=== PATIENT | female | born 1970 | race Caucasian/White ===

== ENCOUNTER 2018-06-02 14:53 | Outpatient (CLI) | payer OTHER | END 2018-06-02 14:54 | disposition home or self-care (01) | LOC: BICMAMMO 14:53 | PROVIDERS: ATTEND Obstetrics & Gynecology | DX: Z12.31 Encounter for screening mammogram for malignant neoplasm of breast (principal); Z80.3 Family history of malignant neoplasm of breast | CPT/HCPCS: 77063; 77067 ==

== ENCOUNTER 2020-01-05 14:59 | Outpatient (CLI) | payer OTHER ==
--- NOTE | 2020-01-05 15:51 | MMO ---
Bilateral MAMMO Bilat Screen [facility]. CLINICAL HISTORY: Patient is 49 years old and is seen for screening. The patient has no personal history of cancer. The patient has a history of bilateral Implants in 2014. VIEWS: The views performed were: bilateral craniocaudal; bilateral mediolateral oblique; and bilateral Implant displaced with tomosynthesis. FILMS COMPARED: The present examination has been compared to prior imaging studies performed at [facility] on 01/13/2013 and 06/02/2018. This study has been interpreted with the assistance of computer-aided detection. MAMMOGRAM FINDINGS: There are scattered fibroglandular densities. Normal implants are present. There are no suspicious masses, suspicious calcifications, or new areas of architectural distortion. IMPRESSION: THERE IS NO MAMMOGRAPHIC EVIDENCE OF MALIGNANCY. A ROUTINE FOLLOW-UP MAMMOGRAM IN 1 YEAR IS RECOMMENDED. THE RESULTS OF THIS EXAM WERE SENT TO THE PATIENT. ACR BI-RADS Category 2 - Benign finding MAMMOGRAPHY NOTE: 1. A negative mammogram report should not delay a biopsy if a dominant of clinically suspicious mass is present. 2. Approximately 10% to 15% of breast cancers are not detected by mammography. 3. Adenosis and dense breasts may obscure an underlying neoplasm. Reported by: BLOSSOM HERNANDEZ MD Electonically Signed: [id number]
== END 2020-01-05 15:00 | disposition home or self-care (01) ==
LOC: BICMAMMO 14:59
PROVIDERS: ATTEND Obstetrics & Gynecology
DX: Z12.31 Encounter for screening mammogram for malignant neoplasm of breast (principal)
CPT/HCPCS: 77063; 77067

== ENCOUNTER 2020-08-31 09:08 | Day surgery (SDC) | payer OTHER ==
[2020-08-29 15:35] VITALS: BMI 23.8
[2020-08-31] MEDS ORDERED: cefOXitin Sodium/Dextrose 2 GM/50 ML BAG ONE (10:14)
[2020-08-31] MEDS ORDERED: Fentanyl 100 MCG/2 ML VIAL ONE ×2 (10:36→11:52)
[2020-08-31] MEDS ORDERED: Midazolam HCl 2 mg/2 ml Vial ONE (10:36)
[2020-08-31] MEDS ORDERED: Lidocaine 1% w/Epinephrine 1:100K 20 ML VIAL ONE (10:38)
[2020-08-31] MEDS ORDERED: Bupivacaine 0.25% HCL 30 ML VIAL ONE (10:38)
[2020-08-31] MEDS ORDERED: Lidocaine 2% Jelly 5 ML TUBE ONE (10:38)
[2020-08-31] MEDS ORDERED: PROPOFOL 200 MG/20 ML VIAL ONE (10:52)
[2020-08-31] MEDS ORDERED: Glycopyrrolate 0.2 MG/ML 5 ML SYRINGE ONE (10:52)
[2020-08-31] MEDS ORDERED: Ondansetron PF 4 MG/2 ML Vial ONE (10:52)
[2020-08-31] MEDS ORDERED: Rocuronium Bromide 10 MG/ML (10ML VIAL) ONE (10:52)
[2020-08-31] MEDS ORDERED: Lidocaine 1% PF 5 ML VIAL ONE (10:52)
== END 2020-08-31 14:45 | disposition home or self-care (01) ==
LOC: SDC 09:08
PROVIDERS: ATTEND Surgery
PROC: 06BY3ZC Excision of Hemorrhoidal Plexus, Percutaneous Approach (ICD-10-PCS; principal; 2020-08-31)
DX: K64.8 Other hemorrhoids (principal); K59.00 Constipation, unspecified; E89.0 Postprocedural hypothyroidism; F17.200 Nicotine dependence, unspecified, uncomplicated; Z79.82 Long term (current) use of aspirin; Z79.899 Other long term (current) drug therapy; Z88.1 Allergy status to other antibiotic agents
CPT/HCPCS: 88304; J0694; J2250; J2405; J2704; J3010; S0020

== ENCOUNTER 2021-03-06 13:46 | Outpatient (CLI) | payer OTHER | END 2021-03-06 13:47 | disposition home or self-care (01) | LOC: BICMAMMO 13:46 | PROVIDERS: ATTEND Obstetrics & Gynecology | DX: Z12.31 Encounter for screening mammogram for malignant neoplasm of breast (principal); Z98.82 Breast implant status | CPT/HCPCS: 77063; 77067 ==

== ENCOUNTER 2021-05-24 12:23 | Outpatient (CLI) | payer OTHER | END 2021-05-24 12:24 | disposition home or self-care (01) | LOC: BICULT 12:23 | PROVIDERS: ATTEND Family Medicine | DX: E04.1 Nontoxic single thyroid nodule (principal); Z90.89 Acquired absence of other organs | CPT/HCPCS: 76536 ==

== ENCOUNTER 2023-09-17 14:20 | Outpatient (CLI) | payer BC | END 2023-09-17 14:21 | disposition home or self-care (01) | LOC: BICMAMMO 14:20 | PROVIDERS: ATTEND Obstetrics & Gynecology | DX: Z12.31 Encounter for screening mammogram for malignant neoplasm of breast (principal); N63.15 Unspecified lump in the right breast, overlapping quadrants; Z98.82 Breast implant status | CPT/HCPCS: 77063; 77067 ==

== ENCOUNTER 2023-09-30 14:46 | Outpatient (CLI) | payer BC | END 2023-09-30 14:47 | disposition home or self-care (01) | LOC: BICMAMMO 14:46 | PROVIDERS: ATTEND Obstetrics & Gynecology | DX: N64.89 Other specified disorders of breast (principal) | CPT/HCPCS: G0279 ==